=== PATIENT | male | born 1990 | race Caucasian/White ===

== ENCOUNTER 2021-06-22 18:09 | Emergency (ER) | payer BC ==
[2021-06-22 18:20] VITALS: BP 146/88; PULSE 77; TEMP 98; BMI 25.8
[2021-06-22] MEDS ORDERED: ACETAMINOPHEN 1000 MG/100 ML BAG IVPB ONE (18:53)
[2021-06-22] MEDS ORDERED: SODIUM CHLORIDE 1,000 ML IV STA ×2 (18:53→21:37)
[2021-06-22] MEDS ORDERED: ACETAMINOPHEN INJECTION 100 ML IVPB ONE (19:29)
[2021-06-22 20:08] LABS: BASO % 0.8 % (0-2.0); EOS % 0.6 % (0-4.5); HEMATOCRIT 45.3 % (35.4-49); HEMOGLOBIN 15.6 GM/dL (11.7-16.9); LYMPH % 16.5 % (8-40); MCHC 34.3 g/dl (32.0-35.9); MEAN CELL VOLUME 87.3 fl (80-96); MEAN PLT VOLUME 7.7 fl (7.5-11.1); MONO % 7.3 % (3.8-10.2); NEUT % 74.8 % (42.8-82.8); PLATELET COUNT 312 10^3/uL (134-434); RBC 5.19 M/mm3 (4.00-5.60); RDW 13.2 % (11.9-15.9); WHITE BLOOD COUNT 5.9 K/mm3 (4.0-10.0)
[2021-06-22 20:21] LABS: CALCIUM 9.5 mg/dL (8.5-10.1)
[2021-06-22 20:22] LABS: ALBUMIN 4.5 g/dl (3.4-5.0); BLOOD UREA NITROGEN 13.2 mg/dL (7-18)
[2021-06-22 20:25] LABS: CREATININE 1.1 mg/dL (0.55-1.3)
[2021-06-22 20:26] LABS: BILIRUBIN,TOTAL 0.6 mg/dL (0.2-1); TOT PROT 7.8 g/dl (6.4-8.2)
[2021-06-23 11:10] LABS: SARS-CoV-2 NAA Not Detected (Not Detected)
== END 2021-06-23 00:16 | disposition home or self-care (01) ==
LOC: JER 18:09
PROC: 3E0333Z Introduction of Anti-inflammatory into Peripheral Vein, Percutaneous Approach (ICD-10-PCS; principal; 2021-06-22)
PROC: 3E0337Z Introduction of Electrolytic and Water Balance Substance into Peripheral Vein, Percutaneous Approach (ICD-10-PCS; 2021-06-22)
PROC: 3E0337Z Introduction of Electrolytic and Water Balance Substance into Peripheral Vein, Percutaneous Approach (ICD-10-PCS; 2021-06-22)
DX: R07.89 Other chest pain (principal); J06.9 Acute upper respiratory infection, unspecified
CPT/HCPCS: 36415; 71046-TC-FY; 80053; 84484; 85025; 87804; 93005; 93010; 99285-25; C9803-CS; U0003; U0005

== ENCOUNTER 2023-11-06 03:58 | Day surgery (SDC) | payer BC, OTHER ==
[2023-11-03 12:11] VITALS: BMI 25.8
[2023-11-06] MEDS ORDERED: BUPIVACAINE HCL/PF 0.5% (5MG/ML) 10 ML VIAL ONE (07:19)
[2023-11-06] MEDS ORDERED: HEPARIN NA (PORCINE) 5,000 UNITS/ML 1ML VIAL ONE ×2 (07:20→08:19)
[2023-11-06] MEDS ORDERED: SUCCINYLCHOLINE CHLORIDE 200 MG/10 ML SYRINGE ONE (07:39)
[2023-11-06] MEDS ORDERED: ROCURONIUM BROMIDE 50 MG/5 ML SYRINGE ONE (07:39)
[2023-11-06] MEDS ORDERED: MIDAZOLAM HCL 2 MG/2 ML SINGLE DOSE VIAL ONE (07:39)
[2023-11-06] MEDS ORDERED: PROPOFOL 40 ML ONE (07:39)
[2023-11-06] MEDS ORDERED: BUPIVACAINE HCL/PF 0.25% (2.5MG/ML) 10 ML VIAL ONE (07:47)
[2023-11-06] MEDS ORDERED: HYDROmorphone HCl 2 MG/ML VIAL ONE (08:11)
[2023-11-06] MEDS: ceFAZolin SODIUM 1 GM VIAL IVPB ONE (08:15)
[2023-11-06] MEDS ORDERED: DEXAMETHASONE SOD PHOSPHATE 4 MG/1 ML VIAL ONE (08:20)
[2023-11-06] MEDS ORDERED: ceFAZolin SODIUM 1 GM VIAL ONE (08:20)
[2023-11-06] MEDS ORDERED: ONDANSETRON 4 MG/2 ML VIAL ONE (08:20)
[2023-11-06] MEDS: BUPIVACAINE HCL/PF 0.25% (2.5MG/ML) 10 ML VIAL IJ ONE (08:36)
[2023-11-06] MEDS ORDERED: oxyCODONE HCL 5 MG TABLET PO PRN ×2 (09:34)
[2023-11-06 10:38] VITALS: TEMP 97.7
[2023-11-06] MEDS: LACTATED RINGERS SOLUTION 1,000 ML IV SCH (10:45)
[2023-11-06 11:43] VITALS: RESP 16
[2023-11-06 12:45] VITALS: BP 139/74; PULSE 82
== END 2023-11-06 12:58 | disposition home or self-care (01) ==
LOC: JASU-SURG 03:58
PROVIDERS: ATTEND Surgery
PROC: 0DTJ4ZZ Resection of Appendix, Percutaneous Endoscopic Approach (ICD-10-PCS; principal; 2023-11-06 08:00)
PROC: 0WQF4ZZ Repair Abdominal Wall, Percutaneous Endoscopic Approach (ICD-10-PCS; 2023-11-06 08:00)
DX: K35.80 Unspecified acute appendicitis (principal); K42.9 Umbilical hernia without obstruction or gangrene
CPT/HCPCS: 88302-TC; 88304-TC; 94760; J1644